=== PATIENT | male | born 1945 | race Caucasian/White ===

== ENCOUNTER → 2024-04-28 | Day surgery (SDC) | payer MEDICARE, BC ==
[~2024-04-28] MED LIST: Albumin 25% 200 ML ONE; FLU (Fluad Triv) TS24-25 (65UP)/MF59C/PF 45 MCG/0.5 ML Syringe IM ONE; Sodium Bicarbonate 2.5 MEQ/5 ML SDV ONE
[2024-04-28 12:52] VITALS: BP 141/66; TEMP 98.7
[2024-04-28 13:25] LABS: ALT (SGPT) 14 U/L (8-55); AST (SGOT) 24 U/L (5-34); Albumin 2.9 g/dL (3.4-4.8); Alkaline Phosphatase 89 U/L (40-110); Anion Gap 13 mmol/L (10-20); BUN (Urea Nitrogen) 19 mg/dL (8.4-25.7); Bilirubin, Total 1.1 mg/dL (0.2-1.2); Calc. Creatinine Clearance 60 mL/min (70-130); Calcium 8.9 mg/dL (7.8-10.44); Carbon Dioxide 23 mmol/L (23-31); Chloride 108 mmol/L (98-107); Estimated GFR 55; Globulin 3.4 g/dL (2.4-3.5); Glucose 109 mg/dL (83-110); Protein, Total 6.3 g/dL (5.8-8.1); Sodium 140 mmol/L (136-145)
[2024-04-28 13:32] LABS: #Basophils 0.03 10x3/uL (0.0-0.2); #Eosinophils 0.16 10x3/uL (0.0-0.5); #Monocytes 0.41 10x3/uL (0.0-1.1); #Neutrophils 3.17 10x3/uL (1.5-8.4); %Basophils 0.7 % (0.0-2.0); %Eosinophils 3.7 % (0.0-6.0); %Lymphocytes 13.3 % (18.0-47.0); %Monocytes 9.4 % (0.0-10.0); %Neutrophils 72.7 % (40.0-75.0); Hematocrit 27.6 % (38.8-50.0); Hemoglobin 8.6 g/dL (13.5-17.5); Mean Corpuscular HGB CONC 31.2 g/dL (32.0-36.0); Mean Corpuscular Hemoglobin 27.3 pg (27.0-33.0); Mean Corpuscular Volume 87.6 fL (81.2-95.1); Mean Platelet Volume 12.8 fL (7.4-10.4); Platelet Count 72 10x3/uL (150-450); RBC Distribution Width 14.6 % (11.5-14.5); Red Blood Cell (RBC) Count 3.15 10x6/uL (4.32-5.72); White Blood Cell (WBC) Count 4.4 10x3/uL (3.5-10.5)
[2024-04-28 13:40] LABS: INR-International Normal Ratio 1.1; PTT 24.5 sec (22.0-33.0); Prothrombin Time 11.1 sec (9.5-12.1)
[2024-04-28 16:38] LABS: BF Color Yellow; Body Fluid Source Ascites Body Fluid; Clarity Hazy (Clear); Tube # EDTA
[2024-04-28 18:03] LABS: BF Segmented Neutrophils 7 %; Cell Count Non Hematic 62 %; Eosinophils 3 %; Lymphocytes 28 %
== END ==
LOC: CSHULT 12:01
PROVIDERS: ATTEND Physician Assistant Medical
PROC: 0W9G30Z Drainage of Peritoneal Cavity with Drainage Device, Percutaneous Approach (ICD-10-PCS; principal; 2024-04-28)
DX: K74.60 Unspecified cirrhosis of liver (principal); R18.8 Other ascites; K21.9 Gastro-esophageal reflux disease without esophagitis; K22.2 Esophageal obstruction; Z98.49 Cataract extraction status, unspecified eye; Z87.891 Personal history of nicotine dependence
CPT/HCPCS: 49083; 80053; 82042; 84157; 85025; 85610; 85730; 87070; 87205; 89051; P9047

== ENCOUNTER 2024-08-16 09:01 | Outpatient (CLI) | payer MEDICARE, BC | END 2024-08-16 09:02 | disposition home or self-care (01) | LOC: CSHULT 09:01 | PROVIDERS: ATTEND Physician Assistant Medical | DX: K74.60 Unspecified cirrhosis of liver (principal); I85.00 Esophageal varices without bleeding; R18.8 Other ascites; D50.9 Iron deficiency anemia, unspecified; N28.1 Cyst of kidney, acquired | CPT/HCPCS: 76705 ==